=== PATIENT | male | born 1995 | race Two or more races ===

== ENCOUNTER 2024-01-29 12:39 | Emergency (ER) | payer OTHER ==
[~2024-01-29] VITALS: Ht 170.2 cm; Wt 96.2 kg
[2024-01-29] MEDS ORDERED: KETOROLAC TROMETHAMINE 60 MG VIAL IM ONE (14:00)
[2024-01-29] MEDS ORDERED: CIPRO500 MG PO (14:04)
[2024-01-29] MEDS ORDERED: DICLOFENAC SODI75 MG PO (14:04)
== END 2024-01-29 14:07 | disposition home or self-care (01) ==
LOC: ER 12:39
DX: H00.019 Hordeolum externum unspecified eye, unspecified eyelid (principal)
CPT/HCPCS: 96372; 99282; J1885